=== PATIENT | female | born 2000 | race African-American/Black ===

== ENCOUNTER 2021-07-19 14:31 | Emergency (ER) | payer MEDICAID ==
[~2021-07-19] VITALS: Ht 167.6 cm; Wt 88.0 kg
[~2021-07-19 14:31] MED LIST: CLOT21CR4 VG; PYR200 MT; SULF1TAB48 PO
[2021-07-19 14:39] VITALS: BP 128/97
== END 2021-07-19 14:59 | disposition home or self-care (01) ==
LOC: ER 14:31
DX: U07.1 COVID-19 (principal)
CPT/HCPCS: 93005; 99283

== ENCOUNTER 2021-09-30 16:17 | Emergency (ER) | payer SELFPAY ==
[~2021-09-30] VITALS: Ht 167.6 cm; Wt 86.0 kg
[2021-09-30] MEDS ORDERED: HYDROCODONE/ACETAMINOPHEN 5/325MG TABLET PO STA (20:25)
[2021-09-30] MEDS ORDERED: LOPERAMIDE HCL 2MG CAPSULE PO ONE (20:30)
[2021-09-30 22:26] LABS: BASOPHILS % 0.3 % (0.0-2.0); EOSINOPHILS % 1.6 % (0.0-5.0); HEMATOCRIT. 34.8 % (36.0-48.0); HEMOGLOBIN. 11.3 g/dL (12.0-16.0); LYMPHOCYTES % 22.8 % (20.0-50.0); MEAN CORPUSCULAR HEMOGLOBIN 25.4 pg (28.0-32.0); MEAN CORPUSCULAR VOLUME 78.1 fL (81.0-99.0); MEAN PLATELET VOLUME 8.1 fl (7.4-10.4); MONOCYTES % 6.4 % (2.0-8.0); NEUTROPHILS % 68.9 % (40.0-76.0); PLATELET 383 x1000/uL (130-400); RED BLOOD CELL COUNT 4.45 mill/uL (4.2-5.4); RED CELL DISTRIBUTION WIDTH 15.5 % (11.6-14.6)
[2021-09-30 22:28] LABS: CHLORIDE 104 mEq/L (98-107)
[2021-09-30 22:31] LABS: HCG SCREEN NEGATIVE
[2021-10-01] MEDS ORDERED: HYDROCODONE/ACETAMINOPHEN 5/325MG TABLET PO SCH (01:30)
[2021-10-01] MEDS ORDERED: LOPERAMIDE HCL 2MG CAPSULE PO SCH (01:30)
[2021-10-01 01:44] VITALS: BP 125/72
[2021-10-01 02:02] LABS: CLARITY URINE CLEAR (CLEAR); COLOR URINE YELLOW (YELLOW); KETONES URINE 1+ (NEGATIVE); LEUKOCYTE ESTERASE URINE TRACE (NEGATIVE); NITRITE URINE NEGATIVE (NEGATIVE); OCCULT BLOOD URINE NEGATIVE (NEGATIVE); PH URINE 5.5 (4.5-8.0); PROTEIN URINE TRACE (NEGATIVE); SPECIFIC GRAVITY URINE 1.039 (1.005-1.030); UROBILINOGEN URINE 0.2 E.U./dL (0.2-1.0)
[2021-10-01] MEDS ORDERED: NITR-87 MT (02:30)
[2021-10-01] MEDS ORDERED: NITROFURANTOIN 100MG M/M CAPSULE PO ONE (02:30)
[2021-10-01] MEDS ORDERED: IMOD MT (02:31)
[2021-10-05 04:09] LABS: NEISSERIA GONORRHOEAE NAA Negative (Negative)
== END 2021-10-01 03:00 | disposition home or self-care (01) ==
LOC: ER 16:17
DX: N39.0 Urinary tract infection, site not specified (principal); D57.1 Sickle-cell disease without crisis; B20 Human immunodeficiency virus [HIV] disease; Z91.010 Allergy to peanuts; Z91.018 Allergy to other foods
CPT/HCPCS: 36415; 76830; 76856; 80053; 81003; 83690; 84703; 85025; 87491; 87591; 99284; J7040; Z7610